=== PATIENT | female | born 1990 | race African-American/Black ===

== ENCOUNTER 2017-05-06 16:51 | Emergency (ER) | payer OTHER ==
[2017-05-06] MEDS: ACETAMINOPHEN 325 MG TAB PO (17:24)
[2017-05-06] MEDS: IBUPROFEN 800 MG TAB PO (17:30)
[2017-05-06] MEDS: ONDANSETRON 4 MG ORAL DISINTEGRATING TAB (S0181) PO (17:43)
[2017-05-06 17:52] LABS: INFLUENZA A AMPLIFICATION POSITIVE (NEGATIVE); INFLUENZA B AMPLIFICATION NEGATIVE (NEGATIVE)
[2017-05-06] MEDS ORDERED: OSELTAMIVIR PHOSPHATE 75 MG CAP (TAMIFLU) PO (18:00)
== END 2017-05-06 18:09 | disposition home or self-care (01) ==
LOC: M ED 16:51
DX: J09.X2 Influenza due to identified novel influenza A virus with other respiratory manifestations (principal); R11.2 Nausea with vomiting, unspecified; R05 Cough; F32.9 Major depressive disorder, single episode, unspecified; Z79.899 Other long term (current) drug therapy
CPT/HCPCS: 87502